=== PATIENT | male | born 1970 | race Caucasian/White ===

== ENCOUNTER 2020-11-12 18:25 | Emergency (ER) | payer SELFPAY ==
[2020-11-12] VITALS (7 sets, daily range): BP systolic 109–133; BP diastolic 77–84; PULSE 95–119; RESP 13–20; TEMP 37.1; O2SAT 100
--- NOTE | 2020-11-12 19:08 | ECG_ITS ---
Measurements Intervals [place] Rate: 93 P: 70 W[place]: 157 QRS: 83 QRSD: 98 T: 56 QT: 350 QTc: 437 Interpretive Statements SINUS RHYTHM BASELINE ARTIFACT- AVR, AVL, V1-V5 NORMAL ECG Electronically Signed On 11-12-2020 19:35:56 CDT by Tejas Lyman D.O.
[2020-11-12] MEDS: LACTATED RINGERS 1,000 ML 999 ML IV CONT (19:14)
[2020-11-12] MEDS: SODIUM CHLORIDE 0.9% IV 1,000 ML 999 ML IV CONT (19:14)
--- NOTE | 2020-11-12 19:20 | PC.NURSE ---
Pt unable to void at this time, refusing straight catheter at this time. Urinal at bedside.
--- NOTE | 2020-11-12 19:35 | ED.GENADULT ---
HPI - General Adult General Chief complaint: Unspecified Stated complaint: dehydration Time Seen by Provider: 11/12/20 19:03 Source: patient Mode of arrival: ambulatory Limitations: no limitations History of Present Illness HPI narrative: Patient is a 50-year-old male complaining of I am dehydrated , I have been walking all day . Patient states that he does not have a car so he walks to places I walked from 9 this morning to 4 afternoon . Patient admits to being an alcoholic but has not had a drink today. Patient denies any headache, dizziness, weakness, numbness, chest pain, shortness of breath, abdominal pain, nausea, vomiting, diarrhea, fever or chills. Related Data Home Medications Medication Instructions Recorded Confirmed No Home Medications 11/12/20 11/12/20 Allergies Allergy/AdvReac Type Severity Reaction Status Date / Time No Known Allergies Allergy Verified 11/12/20 18:33 Review of Systems Review of Systems: All systems reviewed & are unremarkable except as noted in HPI and below Constitutional: Constitutional: Denies body ache(s), Denies chills, Denies excessive sweating, Denies fatigue, Denies fever(s), Denies headache(s), Denies lethargy, Denies malaise, Denies weakness and Denies weight loss Eyes: Eyes: Denies blurry vision, Denies change in vision and Denies loss of vision ENT: Denies dizziness, Denies ear discharge, Denies headache(s), Denies lip swelling, Denies epistaxis, Denies nasal congestion, Denies neck pain, Denies throat swelling and Denies tongue swelling Cardiovascular: Cardiovascular: Denies chest pain, Denies chest pain at rest, Denies chest pain with activity, Denies diaphoresis, Denies rapid heart rate, Denies edema, Denies irregular heart rhythm, Denies lightheadedness, Denies palpitations, Denies dyspnea and Denies dyspnea on exertion Respiratory: Respiratory: Denies chest congestion, Denies cough, Denies hemoptysis, Denies dyspnea and Denies dyspnea on exertion Gastrointestinal: Gastrointestinal: Denies abdominal pain, Denies melena, Denies hematochezia, Denies diarrhea, Denies nausea, Denies vomiting and Denies hematemesis Musculoskeletal: Musculoskeletal: Denies abnormal gait, Denies deformity, Denies joint swelling, Denies limited range of motion, Denies neck pain and Denies numbness Neurologic: Denies Abnormal speech present, Denies abnormal gait, Denies confusion, Denies dizziness, Denies headache(s), Denies focal weakness, Denies loss of vision, Denies numbness, Denies Other visual disturbances, Denies Sensory deficit (Neuro) and Denies weakness Psychiatric: Psychiatric: Denies confusion, Denies depression, Denies auditory hallucinations, Denies homicidal ideation and Denies suicidal ideation Endocrine: Endocrine: Denies cold intolerance, Denies excessive sweating, Denies fatigue, Denies heat intolerance and Denies palpitations Hematologic/Lymphatic: Hematologic/Lymphatic: Denies easy bleeding and Denies easy bruising Allergic/Immunologic: Allergic/Immunologic: Denies lip swelling, Denies throat swelling and Denies tongue swelling PMFSH Comments Past medical history: Alcoholism Social history: Positive for smoker, EtOH use every day, heavy drinker, occasional drug use Family history: Noncontributory Exam Const: General: cooperative, healthy appearing, comfortable, no acute distress, well developed, alert and awake; No confusion Orientation/consciousness: oriented to person, oriented to place, oriented to time, patient oriented x3 and No confusion Limitations: no limitations HENMT: Head: normal to inspection, normocephalic and atraumatic Ears: hearing grossly normal bilaterally, TM normal on the right and TM normal on the left General nose exam: Normal external nose present, Normal nares present and No nasal discharge present Face and sinus: normal facial exam Mouth: Yes Normal oral and palatal mucosa present, Yes lip normal, Yes tongue normal and Yes oropharynx normal Thr
[2020-11-12 19:38] LABS: Basophils Absolute Auto 0.1 K/mm3 (0.0-0.1); Basophils Percent Auto 0.9 % (0.2-1.2); Eosinophils Absolute Auto 0.1 K/mm3 (0-0.3); Hemoglobin 10.4 g/dL (14.0-18.0); Immature Granulocyte Absolute 0.03 K/mm3 (0.00-0.031); Immature Granulocyte Percent A 0.4 % (0-0.5); Lymphocytes Absolute Auto 0.53 K/mm3 (0.9-3.2); Lymphocytes Percent Auto 7.8 % (18.3-44.2); Mean Corpuscular HGB Conc 33.5 g/dl (32-36); Mean Corpuscular Volume 101.3 fl (80-100); Mean Platelet Volume 10.2 fl (7.4-10.4); Monocytes Absolute Auto 0.6 K/mm3 (0.1-0.6); Monocytes Percent Auto 9.4 % (2.6-8.5); Neutrophils Absolute Auto 5.5 K/mm3 (1.3-6.7); Neutrophils Percent Auto 80.5 % (45.5-73.1); Platelet Count Result 122 k/mm3 (150-375); Red Blood Count 3.06 M/mm3 (4.6-6.20); Red Cell Distribution Width 12.9 % (11.5-14.5); White Blood Count 6.8 K/mm3 (4.5-10.0)
[2020-11-12 19:52] LABS: Alanine Aminotransferase 36 U/L (4-50); Albumin Level 3.9 g/dL (3.5-5.1); Alkaline Phosphatase 58 U/L (38-126); Anion Gap 10 mmol/L (8-16); Aspartate Amino Transferase 71 U/L (17-59); Bilirubin,Total 1.4 mg/dL (0.2-1.3); Blood Urea Nitrogen 26 mg/dL (9-20); Calcium 8.6 mg/dL (8.4-10.2); Carbon Dioxide 23 mmol/L (22-30); Chloride 105 mmol/L (98-107); Creatine Kinase 253 U/L (55-170); Estimated CRCL calculation 53 ml/min; Estimated Glomerular Filt Rate 58; Glucose 87 mg/dL (75-110); Magnesium 1.6 mg/dL (1.6-2.3); Potassium 4.3 mmol/L (3.4-5.0); Sodium 138 mmol/L (137-145)
[2020-11-12 20:36] LABS: Add Urine Microscopic? YES; Appearance Urine Clear (Clear); Bilirubin Urine Negative (Negative); Blood Urine Negative (Negative); Color Urine Amber (Yellow); Glucose Urine UA Negative (Negative); Hyaline Casts Urine 20-29 /lpf; Ketones Urine Trace mg/dL (Negative); Leukocyte Esterase Ur Negative LEU/UL (Negative); Mucus Urine Moderate /lpf; Nitrate Urine Negative (Negative); Protein Urine 1+ mg/dL (Negative); RBC Urine 0-2 /hpf (0-2); Specific Grav Ur 1.024 (1.001-1.035); Squamous Epithelial Cell Urine Rare /hpf (Few); WBC Urine 0-3 /hpf
--- NOTE | 2020-11-12 21:17 | PC.NURSE ---
Pt appearing to be agitated about a man in the hallway making fun of his feet. After further questioning, pt was getting agitated by hearing voices from EMS in other rooms. After explaining to pt that the voices did not appear to be directed at him, pt ignored and continued to make statements of frustration.
== END 2020-11-12 21:08 | disposition home or self-care (01) ==
PROVIDERS: Emergency Provider Emergency Medicine
DX: T67.8XXA Other effects of heat and light, initial encounter (principal); E86.0 Dehydration; F10.20 Alcohol dependence, uncomplicated; F17.200 Nicotine dependence, unspecified, uncomplicated; X30.XXXA Exposure to excessive natural heat, initial encounter
CPT/HCPCS: 36415; 80053; 81001; 82550; 83735; 85025; 93005; 96360; 99283; J7030; J7120

== ENCOUNTER 2023-03-13 10:47 | Emergency (ER) | payer OTHER, SELFPAY ==
[2023-03-13 10:52] VITALS: BP 135/85; PULSE 116; RESP 18; TEMP 36.6; O2SAT 100
[2023-03-13 11:26] LABS: Basophils Absolute Auto 0.1 K/mm3 (0.0-0.1); Basophils Percent Auto 1.4 % (0.2-1.2); Eosinophils Absolute Auto 0.6 K/mm3 (0-0.3); Eosinophils Percent Auto 8.3 % (0-4.4); Hematocrit 48.7 % (42.0-52.0); Hemoglobin 15.9 g/dL (14.0-18.0); Immature Granulocyte Absolute 0.02 K/mm3 (0.00-0.031); Immature Granulocyte Percent A 0.3 % (0-0.5); Lymphocytes Percent Auto 25.6 % (18.3-44.2); Mean Corpuscular HGB Conc 32.6 g/dl (32-36); Mean Corpuscular Hemoglobin 33.3 pg (26-34); Mean Corpuscular Volume 101.9 fl (80-100); Mean Platelet Volume 9.7 fl (7.4-10.4); Monocytes Absolute Auto 0.6 K/mm3 (0.1-0.6); Monocytes Percent Auto 8.6 % (2.6-8.5); Neutrophils Absolute Auto 3.7 K/mm3 (1.3-6.7); Neutrophils Percent Auto 55.8 % (45.5-73.1); Platelet Count Result 208 k/mm3 (150-375); Red Blood Count 4.78 M/mm3 (4.6-6.20); Red Cell Distribution Width 14.3 % (11.5-14.5); White Blood Count 6.7 K/mm3 (4.5-10.0)
[2023-03-13 11:38] LABS: Alanine Aminotransferase 188 U/L (6-50); Albumin Level 4.6 g/dL (3.5-5.1); Alkaline Phosphatase 61 U/L (38-126); Anion Gap 13 mmol/L (8-16); Aspartate Amino Transferase 269 U/L (17-59); Bilirubin,Total 0.8 mg/dL (0.2-1.3); Blood Urea Nitrogen 18 mg/dL (9-20); Calcium 9.1 mg/dL (8.4-10.2); Carbon Dioxide 26 mmol/L (22-30); Chloride 106 mmol/L (98-107); Estimated CRCL calculation 88 ml/min; Estimated Glomerular Filt Rate > 60; Ethanol 131 mg/dL (<10); Glucose 115 mg/dL (65-110); Potassium 3.8 mmol/L (3.4-5.0); Sodium 145 mmol/L (137-145)
[2023-03-13 11:49] LABS: Appearance Urine Clear (Clear); Bacteria Urine None Seen /hpf; Bilirubin Urine Negative (Negative); Blood Urine Negative (Negative); Color Urine Dark Yellow (Yellow); Glucose Urine UA Negative (Negative); Hyaline Casts Urine Present /lpf; Ketones Urine Negative (Negative); Leukocyte Esterase Ur 2+ LEU/UL (Negative); Mucus Urine Present /lpf; Nitrate Urine Negative (Negative); Non Pathogenic Casts 0-2; Protein Urine 1+ mg/dL (Negative); RBC Urine 0-2 /hpf (0-2); Specific Grav Ur 1.018 (1.001-1.035); Squamous Epithelial Cell Urine None seen /hpf (Few)
[2023-03-13 11:50] LABS: Add Urine Microscopic? YES
[2023-03-13 11:52] LABS: Barbiturate Screen Urine Negative (Negative); Benzodiazepines Screen Urine Negative (Negative)
[2023-03-13 12:00] LABS: Cannabinoid Screen Urine Negative (Negative); Cocaine Screen Urine Negative (Negative); Methadone Screen Urine Negative (Negative); Opiate Screen Urine Negative (Negative); Phencyclidine Screen Urine Negative (Negative)
[2023-03-13 12:15] LABS: Influenza A QL RT-PCR Negative (Negative); Influenza B QL RT-PCR Negative (Negative); SARS-CoV-2 RNA PCR Negative (Negative)
[2023-03-13 12:42] LABS: Amphetamine Screen Urine Positive (Negative)
--- NOTE | 2023-03-13 12:47 | ED.GENADULT ---
HPI - General Adult General Chief complaint: Psychiatric Symptoms <Bang Pitts MD - Last Filed: 03/13/23 18:34> Stated complaint: audible hallucinations <Bang Pitts MD - Last Filed: 03/13/23 18:34> Time Seen by Provider: 03/13/23 10:49 <Bang Pitts MD - Last Filed: 03/13/23 18:34> History of Present Illness HPI narrative: Patient is a 52-year-old male who presents ER with reports of auditory hallucinations. Reports that he has been hearing voices of his brother and other individuals inside his head. He then feels like he is torturing them in his mind. Reports this has been a longstanding issue. He is unsure if it is related to methamphetamine use. No homicidal ideation. Reports he does have thoughts about ending his life to be in the hallucinations. No fevers or chills or sweats. No chest pain or chest pressure. He has no other complaints at this time. <Bang Pitts MD - Last Filed: 03/13/23 18:34> Related Data Home medications: Home Medications Medication Instructions Recorded Confirmed No Home Medications 11/12/20 11/12/20 <Bang Pitts MD - Last Filed: 03/13/23 18:34> Allergies/adverse reactions: Allergies Allergy/AdvReac Type Severity Reaction Status Date / Time No Known Allergies Allergy Verified 03/13/23 10:59 <Bang Pitts MD - Last Filed: 03/13/23 18:34> Review of Systems Review of Systems: All systems reviewed & are unremarkable except as noted in HPI and below <Bang Pitts MD - Last Filed: 03/13/23 18:34> Constitutional: Constitutional: Denies chills, Denies fatigue and Denies fever(s) <Bang Pitts MD - Last Filed: 03/13/23 18:34> ENT: Denies nasal congestion and Denies sore throat <Bang Pitts MD - Last Filed: 03/13/23 18:34> Cardiovascular: Cardiovascular: Denies chest pain, Denies rapid heart rate and Denies radiating jaw, neck or arm pain <Bang Pitts MD - Last Filed: 03/13/23 18:34> Respiratory: Respiratory: Denies cough and Denies dyspnea <Bang Pitts MD - Last Filed: 03/13/23 18:34> Gastrointestinal: Gastrointestinal: Denies abdominal pain, Denies nausea and Denies vomiting <Bang Pitts MD - Last Filed: 03/13/23 18:34> Psychiatric: Psychiatric: Denies anxiety, Denies depression, Denies homicidal ideation and Reports suicidal ideation <Bang Pitts MD - Last Filed: 03/13/23 18:34> Comments: [place] <Bang Pitts MD - Last Filed: 03/13/23 18:34> PMFSH Past Medical History Medical History: Medical History (Updated 03/13/23 @ 18:20 by Bang Pitts MD) Anxiety <Bang Pitts MD - Last Filed: 03/13/23 18:34> Surgical History Surgical History: Surgical History (Updated 03/13/23 @ 18:20 by Bang Pitts MD) No history of previous surgery <Bang Pitts MD - Last Filed: 03/13/23 18:34> Social History Social History: Social History (Updated 03/13/23 @ 18:20 by Bang Pitts MD) Substance use type: crack/cocaine and methamphetamine <Bang Pitts MD - Last Filed: 03/13/23 18:34> Exam Narrative: GENERAL: Well-appearing, well-nourished, and in no acute distress. HEAD: Normocephalic, atraumatic. EYES: PERRL and EOMI. ENT: Mucous membranes moist. CHEST: Clear to auscultation. No respiratory distress. HEART: Regular rate and rhythm. Normal peripheral pulses. ABDOMEN: Soft, nontender, nondistended. EXTREMITIES: Normal range of motion. No edema. SKIN: Warm, dry, no rash. NEURO: Alert and oriented x3. PSYCH: Normal mood and affect. Patient is responding to auditory hallucinations while in the room. Passive SI due to hallucinations without plan. <Bang Pitts MD - Last Filed: 03/13/23 18:34> Course Course Emergency Course: 1817: Patient medically cleared for crisis evaluation. After evaluation by crisis patient is still exhibiting auditory hallucinatio
[2023-03-13 15:17] LABS: Ethanol 29 mg/dL (<10)
[2023-03-13 16:04] VITALS: BP 124/83; PULSE 83; RESP 18; TEMP 36.8; O2SAT 100
--- NOTE | 2023-03-13 16:34 | PC.NURSE ---
Spoke with pt brother regarding pt after seeking approval from pt. Pt brother (Kvng Berger) stated that his brother can call or the [employer] in [place] for a ride when or if he needs one.
--- NOTE | 2023-03-13 18:44 | PC.NURSE ---
Simi from [facility] stated she faxed pt chart over to [facility]
[2023-03-13 19:15] LABS: Ethanol < 10 mg/dL (<10)
--- NOTE | 2023-03-13 19:22 | PC.NURSE ---
THis RN took patient report from EDITH Sanford. THis RN assumed care of patient.
--- NOTE | 2023-03-13 20:22 | PC.NURSE ---
This RN faxed [facility] a copy of patient toxicology report showing alcohol was less than 10 for decision for admission.
== END 2023-03-13 22:50 ==
PROVIDERS: Emergency Provider Emergency Medicine
DX: R44.0 Auditory hallucinations (principal); R45.851 Suicidal ideations; Z11.52 Encounter for screening for COVID-19
CPT/HCPCS: 36415; 80053; 80307; 81001; 84443; 85025; 87086; 87636; 99285

== ENCOUNTER 2023-04-27 11:23 | Emergency (ER) | payer OTHER, SELFPAY ==
[2023-04-27 11:24] VITALS: BP 100/69; PULSE 68; RESP 16; TEMP 36.7; O2SAT 100
--- NOTE | 2023-04-27 11:45 | PC.NURSE ---
Pt denies SI. States the voices in his head tell him to hurt others, no one in particular with no plan. Pt placed in safe room 15 with belongings secured. Pt reports leaving rehab last month due to not wanting to be there and leaving his meds there because they don't help . Pt withdrawn but cooperative.
[2023-04-27 12:20] LABS: Basophils Absolute Auto 0.1 K/mm3 (0.0-0.1); Basophils Percent Auto 0.8 % (0.2-1.2); Eosinophils Absolute Auto 0.2 K/mm3 (0-0.3); Eosinophils Percent Auto 2.8 % (0-4.4); Hematocrit 45.2 % (42.0-52.0); Hemoglobin 14.6 g/dL (14.0-18.0); Immature Granulocyte Absolute 0.03 K/mm3 (0.00-0.031); Immature Granulocyte Percent A 0.4 % (0-0.5); Lymphocytes Absolute Auto 1.39 K/mm3 (0.9-3.2); Lymphocytes Percent Auto 17.7 % (18.3-44.2); Mean Corpuscular HGB Conc 32.3 g/dl (32-36); Mean Corpuscular Hemoglobin 32.6 pg (26-34); Mean Corpuscular Volume 100.9 fl (80-100); Mean Platelet Volume 9.6 fl (7.4-10.4); Monocytes Absolute Auto 0.5 K/mm3 (0.1-0.6); Monocytes Percent Auto 6.4 % (2.6-8.5); Neutrophils Absolute Auto 5.7 K/mm3 (1.3-6.7); Neutrophils Percent Auto 71.9 % (45.5-73.1); Platelet Count Result 269 k/mm3 (150-375); Red Blood Count 4.48 M/mm3 (4.6-6.20); Red Cell Distribution Width 12.8 % (11.5-14.5); White Blood Count 7.9 K/mm3 (4.5-10.0)
[2023-04-27 12:22] LABS: Appearance Urine Clear (Clear); Bilirubin Urine 1+ (Negative); Blood Urine Negative (Negative); Color Urine Dark Yellow (Yellow); Glucose Urine UA Negative (Negative); Ketones Urine Trace mg/dL (Negative); Leukocyte Esterase Ur Negative LEU/UL (Negative); Nitrate Urine Negative (Negative); Protein Urine Negative (Negative); Specific Grav Ur 1.028 (1.001-1.035)
[2023-04-27 12:29] LABS: Acetaminophen < 10 ug/mL (10-30); Salicylate < 1.0 mg/dL (2-20)
[2023-04-27 12:30] LABS: Alanine Aminotransferase 43 U/L (6-50); Albumin Level 4.1 g/dL (3.5-5.1); Alkaline Phosphatase 60 U/L (38-126); Anion Gap 7 mmol/L (8-16); Aspartate Amino Transferase 44 U/L (17-59); Bilirubin,Total 0.8 mg/dL (0.2-1.3); Blood Urea Nitrogen 22 mg/dL (9-20); Calcium 9.2 mg/dL (8.4-10.2); Carbon Dioxide 28 mmol/L (22-30); Chloride 105 mmol/L (98-107); Estimated CRCL calculation 76 ml/min; Estimated Glomerular Filt Rate > 60; Glucose 108 mg/dL (65-110); Potassium 4.3 mmol/L (3.4-5.0); Sodium 140 mmol/L (137-145)
[2023-04-27 12:31] LABS: Ethanol < 10 mg/dL (<10)
[2023-04-27 12:39] LABS: Barbiturate Screen Urine Negative (Negative); Benzodiazepines Screen Urine Negative (Negative)
[2023-04-27 12:40] LABS: Amphetamine Screen Urine Negative (Negative); Cannabinoid Screen Urine Negative (Negative); Cocaine Screen Urine Negative (Negative); Methadone Screen Urine Negative (Negative); Opiate Screen Urine Negative (Negative)
[2023-04-27 12:53] LABS: Add Urine Microscopic? NO; Phencyclidine Screen Urine Negative (Negative)
--- NOTE | 2023-04-27 12:53 | ED.GENADULT ---
HPI - General Adult General Chief complaint: Psychiatric Symptoms Stated complaint: hallucinations Time Seen by Provider: 04/27/23 11:41 History of Present Illness HPI narrative: 52-year-old male with history of schizophrenia presents to the emergency department for evaluation of increased auditory hallucinations. Patient states he does have suicidal and homicidal thoughts. Patient states he has no intent on acting on these thoughts. Patient reports he does have a history of inpatient hospitalization and was recently at [facility]. Related Data Home Medications Medication Instructions Recorded Confirmed No Home Medications 11/12/20 11/12/20 Allergies Allergy/AdvReac Type Severity Reaction Status Date / Time No Known Allergies Allergy Verified 03/13/23 10:59 Review of Systems Review of Systems: All systems reviewed & are unremarkable except as noted in HPI and below PMFSH Past Medical History Medical History (Updated 04/28/23 @ 07:06 by Narendra Seals MD) Anxiety Surgical History Surgical History (Updated 03/13/23 @ 18:20 by Bang Pitts MD) No history of previous surgery Social History Social History (Updated 03/13/23 @ 18:20 by Bang Pitts MD) Substance use type: crack/cocaine and methamphetamine Exam Narrative: APPEARANCE: Well appearing, no pain, no distress, well-nourished. HEAD: normocephalic, atraumatic. EYES: PERRLA/EOMI, conjunctivae clear. NOSE: Normal no drainage EARS:TMS clear with good light reflex. THROAT: Pharynx clear, no exudate. NECK: Supple. No adenopathy, no masses. RESPIRATORY: Airway patent, respirations nonlabored. Clear to auscultation bilaterally, no rales, rhonchi, wheezing. CARDIOVASCULAR: Regular rate and rhythm without murmurs rubs or gallops. ABDOMINAL: Soft, nontender, nondistended, normal bowel sounds MUSCULOSKELETAL: Moves all extremities. Strength/ROM intact, No edema, No calf tenderness. NEURO: Alert. Cranial nerves II through XII intact. Grossly intact SKIN: Warm, dry. Normal Color PSYCHIATRIC: Flat affect Course Course Emergency Course: 52-year-old male presented to ED for evaluation for auditory hallucinations. Patient was medically cleared and patient was evaluated by the crisis consult. Patient did agree for volunteer inpatient psychiatric placement. Patient did receive a bed at [facility] Reevaluation(s) Reevaluation #1: patient was stable at time of transfer. Vital Signs Vital signs: Vital Signs Temperature 98.1 F 04/27/23 11:24 Pulse Rate 68 04/27/23 11:24 Respiratory Rate 16 04/27/23 11:24 Blood Pressure 100/69 04/27/23 11:24 Pulse Oximetry 100 04/27/23 11:24 Oxygen Delivery Room Air 04/27/23 11:24 Temperature 98.1 F 04/27/23 11:24 Pulse Rate 72 04/28/23 12:32 Respiratory Rate 16 04/28/23 12:32 Blood Pressure 98/67 L 04/28/23 12:32 Pulse Oximetry 98 04/28/23 12:32 Oxygen Delivery Room Air 04/27/23 11:24 Medical Decision Making Vital Signs Vital Signs: Vital Signs Temperature 98.1 F 04/27/23 11:24 Pulse Rate 68 04/27/23 11:24 Respiratory Rate 16 04/27/23 11:24 Blood Pressure 100/69 04/27/23 11:24 Pulse Oximetry 100 04/27/23 11:24 Oxygen Delivery Room Air 04/27/23 11:24 Temperature 98.1 F 04/27/23 11:24 Pulse Rate 72 04/28/23 12:32 Respiratory Rate 16 04/28/23 12:32 Blood Pressure 98/67 L 04/28/23 12:32 Pulse Oximetry 98 04/28/23 12:32 Oxygen Delivery Room Air 04/27/23 11:24 Lab Data 04/27/23 12:10 04/27/23 12:10 Labs: Lab Results 04/27/23 Range/Units 12:10 WBC 7.9 (4.5-10.0) K/mm3 RBC 4.48 L (4.6-6.20) M/mm3 Hgb 14.6 (14.0-18.0) g/dL Hct 45.2 (42.0-52.0) % MCV 100.9 H (80-100) fl MCH 32.6 (26-34) pg MCHC 32.3 (32-36) g/dl RDW 12.8 (11.5-14.5) % Plt Count 269 (150-375) k/mm3 MPV 9.6 (7.4-10.4) fl Immature Gran % (Auto) 0.4 (0-0.
[2023-04-27 13:04] LABS: Influenza A QL RT-PCR Negative (Negative); Influenza B QL RT-PCR Negative (Negative); RSV RNA, RT-PCR Negative (Negative); SARS-CoV-2 RNA PCR Negative (Negative)
--- NOTE | 2023-04-27 13:17 | PC.NURSE ---
Attempted to call Crisis hotline at [phone] with no answer. will try again,
--- NOTE | 2023-04-27 13:22 | PC.NURSE ---
Crisis hotline called back regarding patient evaluation, stating representatives will be here shortly.
[2023-04-27 13:26] LABS: Thyroid Stimulating Hormone 0.565 uIU/mL (0.465-4.680)
--- NOTE | 2023-04-27 13:33 | ECG_ITS ---
Measurements Intervals [place] Rate: 67 P: 72 [place]: 145 QRS: 88 QRSD: 101 T: 76 QT: 379 QTc: 400 Interpretive Statements SINUS RHYTHM POSSIBLE SMALL EPSILON WAVE SEEN AT THE TERMINATION OF THE QRS COMPLEX (SEEN BEST IN INFERIOR LEADS). THIS CAN BE ASSOCIATED WITH RIGHT VENTRICULAR DYSPLASIA. COMPARED TO ECG 11/12/2020 19:22:38 NO SIGNIFICANT CHANGES Electronically Signed On 04-27-2023 20:18:31 [employer] by Rhonda Chambers M.D.
[2023-04-27 15:31] VITALS: BP 108/72; PULSE 75; RESP 17; O2SAT 97
--- NOTE | 2023-04-27 15:35 | PC.NURSE ---
Muna with [facility] called for pt status. States she will talk to her doctor regarding admitting and will call back.
--- NOTE | 2023-04-27 15:39 | PC.NURSE ---
Muna called with accepting physician, Dr. Leigh Greer at [facility].
--- NOTE | 2023-04-27 17:18 | PC.NURSE ---
Report received from EDITH Fontenot. Assumed care of pt, pt currently sleeping in room. Breathing even and unlabored. Dinner tray ordered. Transport being set up to transport [facility] to [facility].
--- NOTE | 2023-04-27 18:06 | PC.NURSE ---
Pt yelling please get me out of here, get me out of here . This RN at bedside to speak with patient and attempt to verbally calm him, pt states I dont want to look you in the eyes please leave Pt made aware dinner tray ordered and working on transport. Laying in bed.
--- NOTE | 2023-04-28 10:20 | PC.NURSE ---
pt awoken with verbal stimuli. refused meds stating that they dont help and actually make the voices worse . requesting dietary tray. lunch tray ordered.
[2023-04-28 12:32] VITALS: BP 98/67; PULSE 72; RESP 16; O2SAT 98
== END 2023-04-28 12:28 ==
PROVIDERS: Emergency Provider Emergency Medicine
DX: R44.0 Auditory hallucinations (principal); R45.851 Suicidal ideations; Z20.822 Contact with and (suspected) exposure to COVID-19; F41.9 Anxiety disorder, unspecified
CPT/HCPCS: 36415; 80053; 80307; 81003; 84443; 85025; 87637; 93005; 99285